=== PATIENT | female | born 1965 | race Caucasian/White ===

== ENCOUNTER 2019-06-23 16:30 | Inpatient (IN) | payer OTHER ==
[2019-06-29 08:44] VITALS: BMI 43.4
[2019-06-30] MEDS ORDERED: Bupivacaine/Epinephrine 0.25% 30 ML VIAL ONE (06:52)
[2019-06-30] MEDS ORDERED: cefOXitin 2 GM VIAL ONE (07:03)
[2019-06-30] MEDS ORDERED: Ketorolac Tromethamine 30 MG/ML VIAL ONE (07:03)
[2019-06-30] MEDS ORDERED: Scopolamine 1.5 mg/72 hour Patch ONE (07:04)
[2019-06-30] MEDS ORDERED: Sodium Chloride 0.9% 100 ML ONE (07:04)
[2019-06-30] MEDS ORDERED: Fentanyl 100 MCG/2 ML VIAL ONE ×3 (07:42→11:04)
[2019-06-30] MEDS ORDERED: Midazolam HCl 2 mg/2 ml Vial ONE ×2 (07:42→07:51)
[2019-06-30] MEDS ORDERED: Morphine 2 MG/ML SYRINGE SLOW IVP PRN (09:40)
[2019-06-30] MEDS ORDERED: hydrALAZINE 20 MG/ML VIAL SLOW IVP PRN (09:40)
[2019-06-30] MEDS ORDERED: Dextrose 5% in Water 1,000 ML IV PRN (09:40)
[2019-06-30] MEDS ORDERED: Ondansetron PF 4 MG/2 ML Vial IVP PRN (09:40)
[2019-06-30] MEDS ORDERED: Dextrose 50% Abboject 50 ML SYRINGE SLOW IVP PRN (09:40)
[2019-06-30] MEDS ORDERED: diphenhydrAMINE 50 MG/ML VIAL IVP PRN (09:40)
[2019-06-30] MEDS ORDERED: Promethazine HCl 25 MG/ML VIAL IM PRN (09:40)
[2019-06-30] MEDS ORDERED: Hydrocodone-Acetamin 15 ML UDCUP PO PRN (09:40)
[2019-06-30] MEDS ORDERED: Morphine 4 MG/ML VIAL SLOW IVP PRN (09:40)
[2019-06-30] MEDS ORDERED: Promethazine HCl 25 MG/ML VIAL ONE (10:01)
[2019-06-30] MEDS ORDERED: Ketorolac Tromethamine 30 MG/ML VIAL IVP SCH ×2 (12:00→22:00)
[2019-06-30] MEDS ORDERED: Acetaminophen 1,000 MG in Premix Bag 1 BAG IVPB SCH ×2 (12:00→22:00)
[2019-06-30] MEDS ORDERED: Dexamethasone 20 MG/5 ML VIAL ONE (12:22)
[2019-06-30] MEDS ORDERED: Ondansetron PF 4 MG/2 ML Vial ONE (12:22)
[2019-06-30] MEDS ORDERED: Glycopyrrolate 0.2 MG/ML 5 ML SYRINGE ONE (12:22)
[2019-06-30] MEDS ORDERED: PROPOFOL 200 MG/20 ML VIAL ONE (12:22)
[2019-06-30] MEDS ORDERED: Rocuronium Bromide 10 MG/ML (10ML VIAL) ONE (12:22)
[2019-06-30] MEDS: D5 1/2 NS w/20 mEq KCL 1,000 ML IV SCH (16:04)
[2019-06-30] MEDS: Acetaminophen 1,000 MG in Premix Bag 1 BAG IVPB SCH ×2 (16:35→21:10)
[2019-06-30] MEDS: Ketorolac Tromethamine 30 MG/ML VIAL IVP SCH ×2 (16:36→21:11)
--- NOTE | 2019-06-30 17:40 | EKG ---
Test Reason : PREOP Blood Pressure : / mmHG Vent. Rate : 075 BPM Atrial Rate : 075 BPM P-R Int : 182 ms QRS Dur : 076 ms QT Int : 404 ms P-R-T Axes : 035 -04 -07 degrees QTc Int : 451 ms Normal sinus rhythm Low voltage QRS Abnormal ECG Confirmed by OSEAS LOYA ([id number]) on 06/30/2019 5:40:12 PM Referred By: KATIE Confirmed By:OSEAS LOYA
[2019-06-30] MEDS ORDERED: Enoxaparin Sodium 40 MG/0.4 ML SYRINGE SC SCH (21:00)
[2019-07-01] MEDS: Ketorolac Tromethamine 30 MG/ML VIAL IVP SCH ×2 (03:06→09:05)
[2019-07-01] MEDS: D5 1/2 NS w/20 mEq KCL 1,000 ML IV SCH (03:06)
[2019-07-01] MEDS: Acetaminophen 1,000 MG in Premix Bag 1 BAG IVPB SCH (03:06)
--- NOTE | 2019-07-01 03:33 | OP ---
DATE OF PROCEDURE: 06/30/2019 PREOPERATIVE DIAGNOSIS: Morbid obesity. POSTOPERATIVE DIAGNOSIS: Morbid obesity. OPERATION PERFORMED: Laparoscopic vertical sleeve gastrectomy using the ViSiGi device. ANESTHESIA: General endotracheal. INDICATIONS: The patient is a 54-year-old morbidly obese white female. She has undergone preoperative evaluation and education and presents at this time for sleeve gastrectomy. DESCRIPTION OF OPERATION: Informed consent was obtained. The patient was taken to the operating room where general endotracheal anesthesia was obtained with the patient in supine position. Abdomen was prepped with ChloraPrep and draped in sterile fashion. Local anesthetic was infiltrated and 5 mm supraumbilical incision was created through which Veress needle was passed to the peritoneal cavity and pneumoperitoneum established using carbon dioxide up to a pressure of 15 mmHg. A 5 mm trocar port was passed through this same incision. Laparoscopic camera was passed through this port. Under direct vision, 4 additional ports were placed including bilateral 5 mm subcostal ports, a 12 mm right paramedian port and a 15 mm left paramedian port. A 5 mm epigastric incision was created through which Nathansen retractor was passed into the abdominal cavity and used to retract the left lobe of the liver. The patient was placed into reverse Trendelenburg position. The ViSiGi device was advanced within the stomach and used to decompress this. The pylorus was identified and beginning 4 cm proximal to the pylorus, the omentum and vascular tissue along the greater curvature was divided using the LigaSure in an ascending fashion up to the angle of His. All posterior adhesions were mobilized. The short gastric vessels were carefully divided and then hemostasis was maintained using the LigaSure. Once this was completely mobilized, the ViSiGi was carefully positioned at the level of the pylorus and placed to suction, which was clearly defining the lesser curvature of the stomach. The gastrectomy was then performed using a series of fires of the [place] stapler using a green load followed by a gold load and a series of blue loads until completion of the gastrectomy. The ViSiGi along the lesser curvature was used as a size 36 bougie to guide in the gastric division. Care was taken to avoid narrowing the incisura or the gastroesophageal junction. The integrity of the staple line was then assessed by insufflating gas through the ViSiGi while irrigating along the staple line. There was no evidence of an air leak. There was no evidence of bleeding along the staple line. The resected stomach was then removed through the 15 mm port and the fascia was closed with 0 Vicryl suture using a GraNee needle. I then closed the 12 mm port also using the GraNee needle and 0 Vicryl suture. The Nathansen retractor was removed. All ports and instruments were removed under direct vision. All irrigant was aspirated. Pneumoperitoneum was carefully evacuated. 0.25% Marcaine with epinephrine was infiltrated into each port site. Skin edges approximated with 4-0 Monocryl subcuticular suture. Dermabond was placed externally. There were no complications. The patient tolerated the procedure well and was taken to recovery room in stable condition. FINDINGS: The patient had no unusual or abnormal anatomy. Her stomach was closer than typical to the spleen, but there was no splenic injury during the course of the operation. There was negligible, if any blood loss. There was no evidence of an air leak at the completion of the procedure. Hemoclips were deployed along the staple line in a typical fashion. The patient tolerated the procedure well and was taken to recovery room in stable condition. Job ID: [id number]
[2019-07-01 05:21] LABS: #Monocytes 0.6 thou/uL (0.11-0.59); #Neutrophils 7.1 thou/uL (1.40-6.50); %Basophils 0.1 % (0.0-1.0); %Eosinophils 0.1 % (0.0-10.0); %Lymphocytes 11.9 % (21.0-51.0); %Monocytes 7.3 % (0.0-10.0); %Neutrophils 80.6 % (42.0-75.0); Hemoglobin 12.8 g/dL (12.0-16.0); Mean Corpuscular HGB CONC 33.9 g/dL (32.0-36.0); Mean Corpuscular Hemoglobin 31.5 pg (27.0-31.0); Mean Corpuscular Volume 92.9 fL (78.0-98.0); Mean Platelet Volume 8.1 fL (7.4-10.4); Platelet Count 262 thou/uL (130-400); RBC Distribution Width 12.9 % (11.5-14.5); Red Blood Cell (RBC) Count 4.08 mill/uL (4.20-5.40); White Blood Cell (WBC) Count 8.7 thou/uL (4.8-10.8)
[2019-07-01 05:41] LABS: Anion Gap 13 mmol/L (10-20); BUN (Urea Nitrogen) 10 mg/dL (9.8-20.1); Calc. Creatinine Clearance 141 mL/min (70-130); Calcium 8.5 mg/dL (7.8-10.44); Carbon Dioxide 20 mmol/L (22-29); Chloride 107 mmol/L (98-107); Estimated GFR-MDRD 73; Glucose 133 mg/dL (70-105); Potassium 4.2 mmol/L (3.5-5.1); Sodium 136 mmol/L (136-145)
[2019-07-01 07:35] VITALS: BP 119/71; TEMP 98.4
--- NOTE | 2019-07-01 07:37 | PDOC.GSPN ---
Surgery Progress Note: Subj - Subjective Narrative: Mrs. Maldonado is a 54 year old female who is day 1 s/p laparoscopic sleeve gastrectomy. She rates her pain as 2/10, located in the midepigastric region and describes it as dull in quality. She reports ambulating several laps yesterday and reports using her incentive spirometer. She is tolerating clear liquids well. She had one episode of nausea yesterday afternoon, but denies any recurrence and denies vomiting. She passed flatus yesterday and today but has not had a bowel movement since surgery. She is urinating without difficulty. Surgery Progress Note: Obj - Vital signs Vital signs: Vital Signs - Most Recent Temp Pulse Resp BP Pulse Ox 98.7 F 73 16 116/69 94 L 07/01/19 04:07 07/01/19 04:07 07/01/19 04:07 07/01/19 04:07 07/01/19 04:07 - Physical Exam General: no distress, no pain Cardiovascular: regular rate and rhythm, no murmur Respiratory: clear to auscultation, normal expansion, normal respiratory effort Abdomen: soft, non tender, nondistended, positive bowel sounds (NABS) Wound: healing well (mild bruising around incision sites, but no erythema, warmth, or drainage) Surgery Progress Note: Results - Labs Result Diagrams: 07/01/19 04:32 07/01/19 04:32 Surgery Progress Note: A/P - Problem (1) S/P laparoscopic sleeve gastrectomy Current Visit: Yes Code(s): Z98.84 - BARIATRIC SURGERY STATUS Status: Acute Assessment and Plan: Mrs. Maldonado is a 54 year old female who is day 1 s/p laparoscopic sleeve gastrectomy. She is recovering well, without post-operative complications. Labs are all within normal limits. Plan to continue patient on liquid diet and monitor her ability to maintain hydration. Encouraged patient to continue ambulating today and using incentive spirometer. Will continue to monitor her for post-operative complications and if she is doing well in all regards, will consider discharging her later today or tomorrow. She will follow up in the clinic in 2 weeks or sooner if she experiences any complications.
[2019-07-01] MEDS ORDERED: Pantoprazole 40 MG VIAL IVP SCH (09:00)
--- NOTE | 2019-07-02 01:17 | DIS ---
DATE OF ADMISSION: 06/30/2019 DATE OF DISCHARGE: 07/01/2019 ADMISSION DIAGNOSIS: Morbid obesity. DISCHARGE DIAGNOSIS: Morbid obesity. PROCEDURE PERFORMED: Laparoscopic vertical sleeve gastrectomy. ADMISSION HISTORY: The patient is a 54-year-old morbidly obese white female, who underwent preoperative evaluation and education, presented at this time for her bariatric surgery. HOSPITAL COURSE: She underwent uneventful surgery yesterday. She has had an uneventful course overnight. She is ambulating, tolerating her liquid diet. She is afebrile. Vital signs within normal limits and laboratory studies are unremarkable. Her examination is unremarkable. She feels well and is certainly stable for discharge home. She is discharged home today with a prescription for hydrocodone elixir. I recommended that she resume her lisinopril and her atorvastatin. I will see her back in my office in 2 weeks for routine followup. Job ID: [id number]
== END 2019-07-01 12:31 | disposition home or self-care (01) | DRG 621 ==
LOC: SURG A 06-30 05:57 → SJJU 06-30 13:34
PROVIDERS: ADMIT Specialist; ATTEND Specialist
PROC: 0DB64Z3 Excision of Stomach, Percutaneous Endoscopic Approach, Vertical (ICD-10-PCS; principal; 2019-06-30)
DX: E66.01 Morbid (severe) obesity due to excess calories (principal); Z68.41 Body mass index [BMI] 40.0-44.9, adult
CPT/HCPCS: 36415; 80048; 85025; 88307; 88312; 93005; 93010; 94760; C9113; J0131; J0694; J1650; J1885; J2250; J2270; J2550; J3010; J3490

== ENCOUNTER 2019-07-25 18:22 | Outpatient (CLI) | payer BC ==
[2019-07-25 18:32] LABS: #Eosinphils 0.1 thou/uL (0.0-0.7); #Lymphocytes 2.5 thou/uL (1.20-3.40); #Monocytes 0.6 thou/uL (0.11-0.59); %Basophils 0.7 % (0.0-1.0); %Eosinophils 1.7 % (0.0-10.0); %Lymphocytes 39.9 % (21.0-51.0); %Monocytes 9.8 % (0.0-10.0); %Neutrophils 47.9 % (42.0-75.0); Hemoglobin 14.6 g/dL (12.0-16.0); Mean Corpuscular HGB CONC 32.4 g/dL (32.0-36.0); Mean Corpuscular Hemoglobin 29.7 pg (27.0-31.0); Mean Corpuscular Volume 91.9 fL (78.0-98.0); Mean Platelet Volume 8.8 fL (7.4-10.4); Platelet Count 294 thou/uL (130-400); RBC Distribution Width 13.3 % (11.5-14.5); Red Blood Cell (RBC) Count 4.91 mill/uL (4.20-5.40); White Blood Cell (WBC) Count 6.4 thou/uL (4.8-10.8)
[2019-07-25 18:51] LABS: ALT (SGPT) 27 U/L (8-55); AST (SGOT) 25 U/L (5-34); Albumin 4.4 g/dL (3.5-5.0); Alkaline Phosphatase 69 U/L (40-110); Anion Gap 20 mmol/L (10-20); BUN (Urea Nitrogen) 11 mg/dL (9.8-20.1); Bilirubin, Total 0.6 mg/dL (0.2-1.2); Calc. Creatinine Clearance 0 mL/min (70-130); Calcium 10.3 mg/dL (7.8-10.44); Carbon Dioxide 24 mmol/L (22-29); Chloride 103 mmol/L (98-107); Estimated GFR-MDRD 64; Globulin 2.8 g/dL (2.4-3.5); Glucose 84 mg/dL (70-105); Potassium 4.6 mmol/L (3.5-5.1); Protein, Total 7.2 g/dL (6.0-8.3); Sodium 142 mmol/L (136-145)
== END 2019-07-25 18:23 | disposition home or self-care (01) ==
LOC: LAB 18:22
PROVIDERS: ATTEND Specialist
DX: K92.1 Melena (principal)
CPT/HCPCS: 36415; 80053; 85025